=== PATIENT | female | born 1940 | race Caucasian/White ===

== ENCOUNTER 2025-05-13 09:06 | Outpatient (REF) | payer MEDICARE, SELFPAY ==
--- NOTE | ~2025-05-13 | MR_ITS ---
EXAMINATION: MR LUMBAR SPINE WITHOUT IV CONTRAST History: BACK PAIN Technique: Sagittal T1, T2 and STIR, and axial T1 and T2 weighted images of the lumbar spine were obtained per departmental protocol. Comparison: There are no prior studies available for comparison. Findings: The vertebral bodies maintain normal height and marrow signal intensity. There is slight retrolisthesis of T12 on L1 and slight spondylolisthesis of L4 on L5. There is moderate degenerative disc disease at these levels with disc desiccation, loss of disc height, and osteophyte formation. Milder changes are noted at the remaining levels. At T12-L1,slight retrolisthesis causes left neural foraminal stenosis. There is no central spinal stenosis. At L1-2, there is mild facet hypertrophy. There is no central spinal or neural foraminal stenosis. At L2-3, there is a mild disc bulge which is slightly asymmetric to the left. The neural foramina patent. There is no central spinal stenosis. At L3-4, there is a mild disc bulge. There is facet and ligamentum flavum hypertrophy without significant central spinal or neural foraminal stenosis. At L4-5, there is slight spondylolisthesis. There is facet osteoarthritis with resultant bilateral neural foraminal stenosis. At L5-S1, there is moderate facet osteoarthritis, right greater than left. There is resultant narrowing of the bilateral neural foramen. The conus terminates at the T12-L1 level and demonstrates normal signal intensity. Evaluation of the paraspinal soft tissues demonstrates bilateral renal cysts measuring 1.3 cm on the right and 3.5 cm on the left. MR/MR lumbar spine wo con Impression: 1. Degenerative disc disease as described. 2. Slight retrolisthesis of T12 on L1 and slight envelope listhesis of L4 on L5. 3. Left neural foraminal stenosis at T12-L1 and bilateral neural foraminal stenosis at L4-5 and L5-S1. Electronically signed by: Herminio Ruiz MD 05/13/2025 10:15 AM EDT
== END 2025-05-13 09:07 | disposition home or self-care (01) ==
LOC: HO.MRI 09:06
PROVIDERS: PCP Internal Medicine; Visit Provider Internal Medicine
DX: M54.9 Dorsalgia, unspecified (principal)
CPT/HCPCS: 72148

== ENCOUNTER → 2025-05-13 09:15 | Outpatient (BNV) | payer MEDICARE, SELFPAY | PROVIDERS: PCP Internal Medicine; Visit Provider Radiology Diagnostic Radiology | DX: M51.360 Other intervertebral disc degeneration, lumbar region with discogenic back pain only (principal); M48.07 Spinal stenosis, lumbosacral region; M48.05 Spinal stenosis, thoracolumbar region | CPT/HCPCS: 72148 ==

== ENCOUNTER 2025-05-24 09:00 | Outpatient (AMB) | payer MEDICARE, SELFPAY ==
--- NOTE | 2025-05-24 09:01 | A.SPINEOV_ITS ---
Vital Signs 05/24/25 09:06 Height 5 ft Weight 127 lb BMI 24.8 Intake Visit Reasons: LBP Intake Note: Ms. Morgan is here today c/o low back pain. 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 She has been having some vertigo and fell down landed on her buttocks. It did give her some back pain, initially she went to an urgent care and subsequently found us through her insurance company who gave her a list of spine doctors in the area. The pain in her back has subsequently gotten significantly better. There is only a bit of stiffness there. She had an x-ray at the urgent care showing scoliosis and had an MRI done at [facility] showing degenerative changes. She came in today for follow-up. She does have pain down her right lateral thigh into her knee. 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 This is the exact same pain that she feels when she has the ID band flare-up. There is no tingling numbness. There is a little bit of weakness in the left leg now. PMH: History of high cholesterol, long COVID, surgery on her right wrist from a fall, meniscus tear in the with subsequent surgery, surgery in the left wrist., GERD, osteoporosis Social hx: She has not smoke drink use any recreational drugs Medications: Simvastatin, omeprazole, famotidine, Ativan, estradiol Allergies: Codeine Physical exam: Awake alert oriented no acute distress, strength and reflexes normal. Localizes pain over the mid lumbar region. Imaging review: Lumbar MRI and x-ray reviewed. The MRI was done at [facility]. It shows scoliotic curvature as well as degenerative disc disease of the lumbar spine. There is a degenerative spondylolisthesis at L4-5 with right L4 foraminal stenosis. No significant central canal stenosis is seen. No evidence of fracture. Impression: 84-year-old female who had a fall about 6 weeks ago and landed on her buttocks, feels better now, but still having some back stiffness. She also had an aggravation of some pre-existing IT band syndrome and some feeling of weakness in her left leg. It sounds to me like she is on the mend. Her exam is reassuring. Her MRI shows degenerative changes only, consistent with scoliotic curvature of the spine and degenerative listhesis at L4-5 with right L4 foraminal stenosis. None of this is inherently surgical if it is not giving her active symptoms. Her IT band issue has been going on for 15 years and she has been able to treat it very successfully through the years with physical therapy so I gave her a referral to go back to that. She has no fracture or anything to suggest there is an acute finding here. I suspect she will continue to get better and improve. If not I would be happy to see her back. Thank you for allowing us to care for your patient. The total time spent with this visit with this patient was 45 minutes reviewing history, physical exam, lumbar imaging review, and implementation of treatment plan or further diagnostic testing Rafael Bean MD,PhD [facility] Orders: Orders PT Evaluation and Treatment Today M76.30 - Iliotibial band syndrome, unspecified leg Coding Level of Care Code New Pt Level 4 (09662) Diagnoses IT band syndrome M76.30
[2025-05-24 09:06] VITALS: BMI 24.8
--- OUTSIDE RECORDS SUMMARY | 2025-05-24 10:15 | XMS_ITS | Clinical Summary ---
Author Organization [facility] Address [address] [place] [address] Care Team Providers Care Liquid Flavor Compounder Name Role Phone Unavailable Primary Care Provider Unavailabl e Source Comments PLEASE NOTE, if this patient is a minor, it may be UNLAWFUL to discuss sensitive information that is contained in these records (such as FAMILY PLANNING, MENTAL HEALTH or SUBSTANCE ABUSE) with the minor patient's parent or other person without the patient's specific authorization.[facility] Social History Tobacco Use Types Packs/Day Years Used Date Smoking Tobacco: Never Assessed Social Connections Answer Date Recorded Connectedness 0 04/16/2024 Financial Resource Strain Answer Date R ecorded Financial Resource Strain 0 2020 Stress Answer Date Recorded Stress 0 04/15/2021 Physical Activity Answer Date Recorded Physical Activity 0 04/15/2021 Food Insecurity Answer Date Recorded Food 0 04/30/2024 Transportation Needs Answer Date Record ed Transportation 0 04/15/2021 Housing Stability Answer Date Recorded Housing 0 04/15/2021 Safety and Environment Answer Date Will rded Safety 0 04/15/2021 Utilities Answer Date Recorded Utilities 0 04/15/2021 Employment Answer Date Recorded Stress 0 04/16/2024 Comments Unknown Sex and Gender Information Value Date Recorded Sex Assigned at Not on file Legal Sex Female 10:14 AM PDT Gender Identity Not on file Sexual Orientation Not on file Plan of Treatment Not on file Insurance [employer]
--- OUTSIDE RECORDS SUMMARY | 2025-05-24 10:15 | XMS_ITS | Clinical Summary ---
Author Organization [facility] [address] [place] [address] Address [address] [place] [address] Phone Care Team Providers Care Green House Manager Name Role Phone Reena Kelley DO Primary Care Provider [phone] Allergies No known active allergies Medications bisacodyL (DULCOLAX) 5 mg EC tablet Take 2 tablets by mouth right before your first dose of liquid prep. 4 Active diphenoxylate-a tropine (LOMOTIL) 2.5-0.025 mg per tablet Take 2 Tablets by mouth 4 times daily as needed for Diarrhea. 4 Active estradioL (ESTRACE) 0.01 % (0.1 mg/gram) vaginal cream Place 1 g vaginally at bedtime as needed. Active famotidine (PEPCID) 20 mg tablet Take 1 Tablet by mouth daily. Active hydrocortisone 2.5 % cream Apply topically every 6 hours. Active hydrocortisone (ANUSOL-HC) 2.5 % rectal cream Apply topically. Active LORazepam (ATIVAN) 0.5 mg tablet Take 0.5 mg by mouth as needed. Active simvastatin (ZOCOR) 20 mg tablet Take 1 Tablet by mouth at bedtime. Active budesonide DR (ENTOCORT EC) 3 mg 24 hr capsuleIndicati ons:Collagenous colitis TAKE 3 CAPSULES (9 MG TOTAL) BY MOUTH EVERY DAY IN THE MORNING 270 capsule 1 4 Active naproxen (NAPROSYN) 500 mg tablet Take 1 tablet (500 mg total) by mouth. 1 Active tretinoin (RETIN-A) 0.025 % cream APPLY A PEA SIZED AMOUNT TO FACE EVERY OTHER NIGHT 4 Active omeprazole (PriLOSEC) [address] capsule Take 1 capsule (40 mg total) by mouth 1 (one) time each day. Take in am on empty stomach, wait 30 mins and then eat to activate the medication 90 each 5 4 Active Active Problems Problem Noted Date Diagnosed Date Thickened endometrium 07/23/2024 Uterine leiomyoma 07/11/2024 Assessment & Plan (07/11/2024 9:29 PM EST): Discussed fibroids are common, likely benign, and asymptomatic. No intervention usually needed. Normal to calcify in menopause. Will obtain US to confirm. Fluid in endometrial cavity 07/11/2024 Assessment & Plan (07/11/2024 9:29 PM EST): Given no bleeding or pain, no need to obtain EMB, but will get US to confirm no other abnormality. She agreed Synovitis of knee 04/05/2011 Other tear of meniscus of kn ee, unspecified laterality, unspecified meniscus, unspecified whether old or current tear, initial encounter 01/10/2011 Overview (06/09/2024): Other tear of cartilage or meniscus of knee, current Immunizations Immunization Administration Dates Next Due Influenza Quadravalent, 0.5m l (Fluzone High-dose) 65yo and older 07/03/2023,06/20/2022,05/07/2021,2019 Influenza trivalent, 0.5mL ( Fluzone High-dose) 65yo and older 07/31/2015 Influenza trivalent, with preservative (Fluzone; Afluria) 6mo and older 05/29/2010 Surgical History Surgery Date Site/Laterality Comments WRIST SURGERY 2008 PROCEDURE: HISTORICAL WRIST SURGERY; COMMENT: Rt wrist 3 surgeries Medical History Medical History Date Comments Gastroenteritis DX:Gastroenterit is Diarrhea DX:Diarrhea Social History Tobacco Use Types Packs/Day Years Used Date Smoking Tobacco: Never Alcohol Use Standard Drinks/Week Comments Yes 0 (1 standard drink = 0.6 oz pur e alcohol) Comments No Sex and Gender Information Value Date Recorded Sex Assigned at Female 06/18/2024 3:20 PM EST Legal Sex Female 7:20 AM EST Gender Identity Female 06/18/2024 3:20 PM EST Sexual Orientation Straight 06/18/2024 3: 20 PM EST Obstetrics History Para Term AB IAB SAB Ectopic Multiple Livin g Live Births 2 2 2 0 0 0 2 2 Date Outcome GA Total Labor Labor/2nd/3rd Weight Sex Type Anes PTL Rae A1 A5 Name Clin Term M Vag-S pont Living Term M Vag-S pont Living Last Filed Vital Signs Vital Sign Reading Time Taken Comments Blood Pressure 127/83 07/23/2024 2:42 PM EST Pulse 82 07/23/2024 2:42 PM EST Temperature - - Respiratory Rate - - Oxygen Saturation - - Inhaled Oxygen Concentration - - Weight 58.1 kg (128 lb) 07/23/2024 2:42 PM EST Height 152.4 cm (5') 07/23/2024 2:42 PM EST Body Mass Index 25 07/23/2024 2:42 PM EST Plan of Treatment Health Maintenance Due Date Last Done Comments DTaP,Tdap,and Td Vaccines (1 - Tdap) 11/16/1959 Pneumococcal Vaccine: 50+ Years (1 of 1 - PCV) 1990 Zoster Vaccines (1 of 2) 1990 RSV Immunization Adult Patients (1 - 1-dose 75+ series) 11/16/2015 Falls Risk Assessment 07/08/2022 Medicare Annual Wellness Visit 07/08/2022 Social Influencers of Health Screening 07/08/2022 Depression Screening 08/05/2024 COVID-19 Vaccine ( season) 2025 07/03/2023, 06/20/2022, 06/16/2021 Influenza Vaccine (#1) 2025 3, 06/20/2022, 05/07/2021, Additional history exists Cholesterol Screening (Lipid Panel) 01/12/2030 01/12/2025, 07/14/2024 Osteoporosis Screening (Bone Density Screening) 02/09/2032 02/08/2022 HIB Vaccines Aged Out No longer eligi ble based on patient's age to complete this topic HPV Vaccines Aged Out No longer eligi ble based on patient's age to complete this topic Hepatitis A Vaccines Aged Out No long er eligible based on patient's age to complete this topic Hepatitis B Vaccines Aged Out No long er eligible based on patient's age to complete this topic IPV Vaccines Aged Out No longer eligi ble based on patient's age to complete this topic MMR Vaccines Aged Out No longer eligi ble based on patient's age to complete this topic Meningococcal ACWY Vaccine Aged Out N o longer eligible based on patient's age to complete this topic Meningococcal B Vaccine Aged Out No l onger eligible based on patient's age to complete this topic RSV Immunization Patients Under 20 months Aged Out No longer eligible based on patient's age to complete this topic Varicella Vaccines Aged Out No longer eligible based on patient's age to complete this topic Procedures Procedure Name Priority Date/Time Associated Diagnosis Comments LIPID PANEL WITH REFLEX TO DIRECT LDL Routine 01/12/2025 11:36 AM EDT 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) Abnormal finding of blood chemistry, unspecified [facility] DEXA AXIAL SKELETON Routine 02/08/2022 12:25 PM EDT Encounter for screening for osteoporosis from Last 3 Months or Most Recently Relevant to Health Maintenance Results * (ABNORMAL) Lipid panel with reflex to direct LDL (01/12/2025 11:36 AM EDT) Cholesterol 216(H) 0 - 200 mg/dL LAB CHEMISTRY METHOD 01/12/2025 3:58 PM EDT [facility] Triglycerides 73 0 - 150 mg/dL LAB CHEMISTRY METHOD 01/12/2025 3:58 PM EDT [facility] HDL 96 >=40 mg/dL LAB CHEMISTRY METHOD 01/12/2025 3:58 PM EDT [facility] LDL Calculated 105(H) 0 - 100 mg/dL LAB CHEMISTRY METHOD 01/12/2025 3:58 PM EDT [facility] VLDL Cholesterol Nick 14.6 mg/dL LAB CHEMISTRY METHOD 01/12/2025 3:58 PM EDT [facility] Non HDL Chol. (LDL+VLDL) 120 <145 mg/dL LAB CHEMISTRY METHOD 01/12/2025 3:58 PM EDT [facility] Chol/HDL Ratio 2.3 0.0 - 4.4 LAB CHEMISTRY METHOD 01/12/2025 3:58 PM EDT [facility] Blood Venous blood specimen / Unknown Venipuncture / Unknown 01/12/2025 11:36 AM EDT 01/12/2025 11:36 AM EDT Bridgett Kingston NP LAB BLOOD ORDERABLES Fi nal Result [facility] [address] [place] [address], * DARREL DEXA AXIAL SKELETON (02/08/2022 12:25 PM EDT) Anatomical Region Laterality Modality Mammography 02/08/2022 10:5 0 AM EDT Narrative 02/08/2022 12:25 PM EDT [facility] Diagnostic Imaging Department [address] [place] [address] Patient: KAREN MORGAN./Age/Sex: 1940 - 81 - F Unit#: [id number] Location/Status: SPDIMAM/REG CLI Mnemonic/Ordering Site: MAMDEXAAX/SPMAM Ordering Physician: REENA KELLEY MD Darrel Dexa Axial Skeleton - 02/08/22 - HISTORY: The patient is an 81-year-old postmenopausal female on chronic glucocorticoid therapy, with clinical concern for metabolic bone disease. FINDINGS: Dual energy x-ray absorptiometry of the lumbar spine and femurs is performed. The mean bone mineral density at L2-3 is 0.793 gm/cm2 which is 66% of that of young normals and 83% of that of age matched controls. This yields a T- score of -3.4 and a Z-score of -1.3 which is diagnostic of osteoporosis. The mean bone mineral density of the femurs bilaterally is 0.633 gm/cm2 which is 63% of that of young normals and 87% of that of age matched controls. This yields a T-score of -3.0 and a Z-score of -0.8 which is diagnostic of osteoporosis. The T-score of the right femoral neck is -3.6 and that of the left femoral neck is -3.4 which is diagnostic of osteoporosis. IMPRESSION: 1. Osteoporosis. There has been a decrease of 7.6% in bone mineral density in the lumbar spine since the prior examination of 06/19/2011. There has been a decrease of 10.4% in bone mineral density in the right femur and a decrease of 7.5% in bone mineral density in the left femur. 2. FRAX analysis yields a 10-year probability of major osteoporotic fracture of 55.7% and a 10-year probability of hip fracture of 31.5%. Code 17151 Dictating Physician: PRINCE GARCIA MD Electronically Signed by: PRINEC GARCAI MD Dic Date/Time: 02/08/22 1223 Sign date/Time: 02/08/22 1225 Procedure Note Prince Garcia MD - 07/25/2022 [facility] Diagnostic Imaging Department [address] [place] [address] Patient: KAREN MORGAN /Age/Sex: 1940 - 81 - F Unit#: [id number] [facility] Mnemonic/Ordering Site: MAMDEXAAX/SPMAM Ordering Physician: REENA KELLEY MD Darrel Dexa Axial Skeleton - 02/08/22 - HISTORY: The patient is an 81-year-old postmenopausal female on chronic glucocorticoid therapy, with clinical concern for metabolic bonedisease. FINDINGS: Dual energy x-ray absorptiometry of the lumbar spine and femursis performed. The mean bone mineral density at L2-3 is 0.793 gm/cm2 which is66% of that of young normals and 83% of that of age matched controls. This yieldsa T- score of -3.4 and a Z-score of -1.3 which is diagnostic of osteoporosis. The mean bone mineral density of the femurs bilaterally is 0.633 gm/[id number] is 63% of that of young normals and 87% of that of age matched controls.This yields a T-score of -3.0 and a Z-score of -0.8 which is diagnostic of osteoporosis. The T-score of the right femoral neck is -3.6 and that ofthe left femoral neck is -3.4 which is diagnostic of osteoporosis. IMPRESSION: 1. Osteoporosis. There has been a decrease of 7.6% in bone mineraldensity in the lumbar spine since the prior examination of 06/19/2011. There hasbeen a decrease of 10.4% in bone mineral density in the right femur and adecrease of 7.5% in bone mineral density in the left femur. 2. FRAX analysis yields a 10-year probability of major osteoporoticfracture of 55.7% and a 10-year probability of hip fracture of 31.5%. Code 37069 Dictating Physician: PRINCE GARCIA MD Electronically Signed by: PRINCE GARCIA MD Dic Date/Time: 02/08/22 1223 Sign date/Time: 02/08/22 1225 Reena Kelley DO IM BI PROCEDURES Final Resul t from Last 3 Months or Most Recently Relevant to Health Maintenance Insurance [employer] - [place] MEDICARE ADVANTAGE Care Teams Green House Manager Relationship Specialty Start Date End Date Reena Kelley DO [address] [place] [id number] PCP - General 02/02/10
== END 2025-05-24 09:36 | disposition home or self-care (01) ==
LOC: HO.HNS 09:01
PROVIDERS: PCP Internal Medicine; Visit Provider Physician Assistant
DX: M76.30 Iliotibial band syndrome, unspecified leg (principal)
CPT/HCPCS: 99204

== ENCOUNTER → 2025-05-24 09:00 | Outpatient (BNVA) | payer MEDICARE, SELFPAY | PROVIDERS: PCP Internal Medicine; Visit Provider Physician Assistant | DX: M76.32 Iliotibial band syndrome, left leg (principal) | CPT/HCPCS: 99202 ==